=== PATIENT | female | born 1935 | race Caucasian/White ===

== ENCOUNTER → 2017-05-23 | Outpatient (CLI) | payer OTHER ==
[~2017-05-23] MED LIST: ACET-24 PO; ATEN-173 PO; CALC-354 PO; CYAN100020 PO; IBUP-103 PO; IRON TAB PO; LISI-788 PO; OMEG10007 PO; OMEP40CA PO; RALO60TA12 PO; SENNTAB23 PO; TAFL1DRO14 OPB; TRAM-10 PO
[2017-05-23 09:59] LABS: BASO % 0.3 %; BASO ABS # 0.03 K/uL (0-0.2); COMPLETE YES; EOS % 4.4 %; HEMATOCRIT 34.4 % (37-47); IG% 0.1 %; LYMPH % 30.7 %; LYMPH ABS # 2.64 K/uL (1.2-3.4); MEAN CELL VOLUME 77.8 fL (80-100); MEAN CORPUSCULAR HEMOGLOBIN 24.7 pg (25-34); MEAN CORPUSCULAR HGB CONC 31.7 g/dl (32-36); MONO % 5.6 %; NEUT % 58.9 %; PLATELET COUNT 364 K/uL (130-400); RED BLOOD COUNT 4.42 M/uL (4.2-5.4)
[2017-05-23 10:28] LABS: ALT/SGPT 16 U/L (12-78); BLOOD UREA NITROGEN 26 mg/dl (7-18); BUN/CREATININE RATIO 25.5 (10-20); CARBON DIOXIDE 27 mmol/L (21-32); CHLORIDE 106 mmol/L (98-107); GLUCOSE 99 mg/dl (70-99); POTASSIUM 4.1 mmol/L (3.5-5.1); SODIUM 140 mmol/L (136-145)
[2017-05-23 10:38] LABS: ALB/GLOB RATIO 0.9 (0.9-2); ALKALINE PHOSPHATASE 67 U/L (45-117); AST/SGOT 11 U/L (15-37)
[2017-05-23 11:32] LABS: ESTIMATED AVERAGE GLUCOSE 114 mg/dl; HA1C FLAG Normal (Normal)
--- NOTE | 2017-05-29 14:33 | CODING QUERY MEDICAL NECESSITY ---
CQSUPPORTING DIAGNOSIS NEEDED A supporting diagnosis is required for the test/procedure performed on this patient in order for us to be reimbursed by the patient's insurance. Please provide a supporting diagnosis for the following test/procedure listed below next to the test name along with your signature. *If there is no additional diagnosis for this patient that would support the following test/procedure please document that below next to the test/procedure. Test(s)/Procedure(s) that require a supporting diagnosis: DOS 05/23/17 VITAMIN D TEST VITAMIN B12 GLYCATED HEMOGLOBIN TEST Provider Signature: Date: Thank you Archana Castillo Health Information Management Once completed, please kindly fax back to [phone] For questions please call [phone]
== END | disposition home or self-care (01) ==
LOC: C.LAB 09:26
PROVIDERS: ATTEND Internal Medicine
DX: R53.83 Other fatigue (principal); E55.9 Vitamin D deficiency, unspecified; E53.8 Deficiency of other specified B group vitamins

== ENCOUNTER → 2017-06-13 | Outpatient (CLI) | payer OTHER | END | disposition home or self-care (01) | LOC: C.MAMM 10:44 | PROVIDERS: ATTEND Internal Medicine | DX: M81.0 Age-related osteoporosis without current pathological fracture (principal); M85.88 Other specified disorders of bone density and structure, other site; M85.851 Other specified disorders of bone density and structure, right thigh; M85.852 Other specified disorders of bone density and structure, left thigh ==

== ENCOUNTER 2017-08-20 09:54 | Observation (INO) | payer OTHER ==
[2017-08-02 12:59] VITALS: BMI 34.0
[2017-08-02 13:19] LABS: BASO % 0.5 %; BASO ABS # 0.05 K/uL (0-0.2); COMPLETE YES; EOS % 2.1 %; HEMATOCRIT 33.7 % (37-47); IG% 0.4 %; LYMPH % 20.8 %; LYMPH ABS # 2.13 K/uL (1.2-3.4); MEAN CELL VOLUME 76.4 fL (80-100); MEAN CORPUSCULAR HEMOGLOBIN 24.5 pg (25-34); MEAN PLATELET VOLUME 10.6 fL (7.4-10.4); NEUT % 70.2 %; PLATELET COUNT 380 K/uL (130-400); RED BLOOD COUNT 4.41 M/uL (4.2-5.4); WHITE BLOOD COUNT 10.24 K/uL (4.8-10.8)
--- NOTE | 2017-08-02 13:26 | PAT Medication Instructions ---
Service Date Aug 02, 2017. Current Home Medication List Atenolol (Tenormin), 25 MG PO QAM Calcium Carbonate-Cholecalcife (Caltrate 600+D), 1 TAB PO QAM Cyanocobalamin (Vitamin B12), 2,000 MCG PO QAM Fish Oil (Bergland-3), 1,200 MG PO QAM Ibuprofen Tab (Advil), 400 MG PO PRN Lisinopril/Hctz (Zestoretic 20MG/25MG), 1 TAB PO QAM Raloxifene Hcl (Evista), 60 MG PO QAM Sennosides-Docusate Sodium (Stool Softener), 1 TAB PO Q2D [Iron Tab], 1 TAB PO QAM Medication Instructions For Your Scheduled Surgery - Hold the following medications 2 weeks prior to surgery: Fish Oil (Bergland-3), 1,200 MG PO QAM - Hold the following medications the morning of surgery: [Iron Tab], 1 TAB PO QAM Raloxifene Hcl (Evista), 60 MG PO QAM Ibuprofen Tab (Advil), 400 MG PO PRN (otherwise okay to continue per surgeon) Lisinopril/Hctz (Zestoretic 20MG/25MG), 1 TAB PO QAM Calcium Carbonate-Cholecalcife (Caltrate 600+D), 1 TAB PO QAM Cyanocobalamin (Vitamin B12), 2,000 MCG PO QAM Sennosides-Docusate Sodium (Stool Softener), 1 TAB PO Q2D - Take the following medications the morning of surgery with a sip of water OTHERWISE NOTHING TO EAT OR DRINK AFTER MIDNIGHT: Atenolol (Tenormin), 25 MG PO QAM If you have any questions please call us at [phone] or [phone] or [phone]
[2017-08-02 13:40] LABS: PARTIAL THROMBOPLASTIN RATIO 0.8; PROTHROMBIN TIME (PATIENT) 10.5 SECONDS (9.0-12.0)
[2017-08-02 13:41] LABS: BUN/CREATININE RATIO 23.3 (10-20); CALCIUM 9.6 mg/dl (8.5-10.1); POTASSIUM 3.8 mmol/L (3.5-5.1)
--- NOTE | 2017-08-02 14:17 | DIAGNOSTIC IMAGING REPORT ---
CHEST 2 VIEWS ROUTINE HISTORY: Preop. COMPARISON: Chest 02/26/2006. FINDINGS: Small linear scarlike density within the left lung apex. Large hiatus hernia which is increased in size. No focal lung consolidations to suggest pneumonia. No evidence for pulmonary edema. No pleural effusions. No pneumothorax. IMPRESSION: No acute process within the chest. Large hiatus hernia which has increased in size. Electronically signed by: León Haynes M.D. 08/02/2017 2:15 PM Dictated Date/Time: 08/02/2017 2:09 PM
--- NOTE | 2017-08-16 08:15 | HISTORY & PHYSICAL EXAMINATION ---
DATE OF ADMISSION: 08/20/2017 CHIEF COMPLAINT: Right arm pain, discomfort and dysfunction. HISTORY OF PRESENT ILLNESS: The patient is an 82-year-old right hand dominant female who injured her right arm back in the middle of January. She tripped over a stone and fell and injured her right arm. She had a spiral humerus fracture. She was splinted and referred to our institution. We treated her with a Gracia brace and sling and swath for about 2 months. There has been no signs of healing. Over time she has tried to use her arm and it has become just more dysfunctional and painful. There have been no signs of healing at all. Her fracture site is hypermobile. She has very limited use of her right arm and would like to have it fixed. She was going to try and just live with this but does not feel like she can do that. She has a chronic ache. She lives by herself and this has made it difficult. PAST MEDICAL HISTORY: 1. Hypertension. 2. Mild obesity with BMI of 35. 3. Unspecified cancer. PAST SURGICAL HISTORY: Include: 1. Ankle surgery. 2. Hysterectomy. 3. Cholecystectomy. ALLERGIES: None. CURRENT MEDICINES: 1. Vitamin B12. 2. Vitamin D3. 3. Lisinopril/hydrochlorothiazide. 4. Evista. 5. Atenolol. SOCIAL HISTORY: An 82-year-old white female. She is . She does not smoke. FAMILY HISTORY: Noncontributory. REVIEW OF SYSTEMS: Negative for diabetes, neurologic problems, vascular problems, bleeding disorders. Denies any chest pain or shortness of breath. No history of DVT or PE. PHYSICAL EXAMINATION: GENERAL: Reveals a pleasant elderly female. She looks to be in pretty good health. HEAD, EYES, EARS, NOSE, AND THROAT EXAMINATION: Benign. NECK: Supple. No lymphadenopathy. LUNGS: Clear to auscultation. HEART: Regular rate and rhythm. ABDOMEN: Soft, nontender, nondistended. EXTREMITY EXAMINATION: Grossly neurovascularly intact except as follows: Examination of the right arm reveals obvious deformity to her arm. She has hypermobility at the fracture site. With any flexion or abduction of the arm the proximal segment moves markedly and the other side just kind of lags and drapes behind. She can flex or extend her fingers appropriately. She is neurologically intact. X-RAYS: X-rays of the right humerus were reviewed. 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 There are no signs of healing at all. ASSESSMENT: An 82-year-old white female now 6 months out from a right humerus fracture with an obvious atrophic nonunion. PLAN: We talked about treatment plans. She has tried to manage this without surgery, but does not feel like she can. She lives by herself having difficulty using her arm. She would like to have her arm fixed. We are going to take her to the operating room and do an ORIF of right humeral diaphyseal nonunion. We will likely need a bone graft from the iliac crest. The risks and benefits of this procedure were explained to the patient including but not limited to DVT, PE, , infection, neurological injury, vascular injury, bleeding problems, nonunion, malunion and specifically radial nerve palsy. The patient understands and desires to proceed. Informed consent was obtained.
[~2017-08-20] VITALS: Ht 167.6 cm; Wt 96.1 kg
[~2017-08-20 09:54] MED LIST changes: -ACET-24 PO; +ATROPINE SULFATE 0.1 MG/ML 5ML SYR IV PRN; +CEFAZOLIN 2000 MG/60 ML D5W 60 ML IV SCH; +EpHEDrine SULFATE INJ 50 MG/ML AMP IV PRN; +FENTANYL CITRATE INJ 50 MCG/1 ML 2 ML VIAL IV PRN; +LACTATED RINGER'S 1000ML 1,000 ML IV SCH; +LACTATED RINGER'S 1000ML IV SCH; -OMEP40CA PO; +ONDANSETRON INJ 2 MG/ML 2 ML VIAL IV PRN; -TAFL1DRO14 OPB; -TRAM-10 PO
[2017-08-20 10:15] VITALS: BP 135/71; PULSE 63; TEMP 36.7; O2SAT 63; Ht 167.6 cm; Wt 96.1 kg
[2017-08-20] MEDS ORDERED: FENTANYL CITRATE INJ 50 MCG/1 ML 2 ML VIAL ONE ×3 (10:52→14:58)
[2017-08-20] MEDS ORDERED: MIDAZOLAM HCL 1 MG/ML 2ML VIAL ONE (10:52)
--- NOTE | 2017-08-20 11:02 | History & Physical Bridge Note ---
H&P Re-Evaluation Bridge Note: I have examined the patient, reviewed the History & Physical and in the interval since the performance of the History & Physical I have noted the following changes of clinical significance: No changes noted
[2017-08-20] MEDS ORDERED: ROPIVACAINE 0.5% 5 MG/ML 30 ML VIAL ONE (11:07)
[2017-08-20] MEDS ORDERED: SUCCINYLCHOLINE CHLORIDE 20 MG/ML 10 ML VIAL IV ONE (11:31)
[2017-08-20] MEDS ORDERED: LIDOCAINE HCL 2% 2 ML VIAL (20MG/ML) ONE (11:31)
[2017-08-20] MEDS ORDERED: PROPOFOL IV EMULSION 10 MG/ML 20 ML VIAL IV ONE (11:31)
[2017-08-20] MEDS ORDERED: BACITRACIN 50000 UNIT VIAL ONE ×2 (12:56→15:31)
[2017-08-20] MEDS ORDERED: BUPIVACAINE/EPINEPHRINE 0.5% MPF 1:200,000 30 ML VIAL ONE (12:56)
[2017-08-20] MEDS ORDERED: ROCURONIUM BROMIDE 10 MG/ML 5 ML VIAL IV ONE (13:56)
[2017-08-20] MEDS ORDERED: ONDANSETRON INJ 2 MG/ML 2 ML VIAL ONE ×2 (13:57→17:14)
[2017-08-20] MEDS ORDERED: EpHEDrine SULFATE 50MG/5ML SYR ONE (13:57)
[2017-08-20] MEDS ORDERED: EpHEDrine SULFATE INJ 50 MG/ML AMP ONE (14:08)
[2017-08-20] MEDS ORDERED: SODIUM CHLORIDE 0.9% INJ 10 ML VIAL ONE (14:08)
[2017-08-20] MEDS ORDERED: GELATIN SPONGE SZ 100 ONE (14:56)
[2017-08-20] MEDS ORDERED: THROMBIN FOR SOLN 20000 UNIT KIT ONE (14:57)
[2017-08-20] MEDS ORDERED: CEFAZOLIN SOD 1 GM VIAL ONE (16:37)
--- NOTE | 2017-08-20 16:41 | DIAGNOSTIC IMAGING REPORT ---
Radiology R HUMERUS MIN 2 VIEW ROUTINE CLINICAL HISTORY: 82 years-old Female presenting with RT ORIF NON UNION. TECHNIQUE: 4 fluoroscopic spot image(s) obtained as part of an intraoperative procedure. COMPARISON: 08/02/2017. FINDINGS/IMPRESSION: There has been interval cortical compression plate and screw fixation across the obliquely oriented mid humeral shaft fracture. Anatomic alignment has been restored. Please see surgical report for further details. Fluoroscopy dosage (mGy): Not available. Fluoroscopy time: 30 seconds. Number of fluoroscopic spot images: 4. Electronically signed by: Horace Astudillo M.D. 08/20/2017 4:40 PM Dictated Date/Time: 08/20/2017 4:39 PM
[2017-08-20] MEDS ORDERED: BISACODYL 10 MG SUPP PR PRN (17:00)
[2017-08-20] MEDS ORDERED: HYDROmorphone INJ 0.5 MG/0.5 ML SYR IV PRN (17:00)
[2017-08-20] MEDS ORDERED: ALUMINUM/MAGNESIUM/SIMETH (MAALOX MAX) 30 ML UDC PO PRN (17:00)
[2017-08-20] MEDS ORDERED: ZOLPIDEM TARTRATE 5 MG TAB PO PRN (17:00)
[2017-08-20] MEDS ORDERED: NO NSAIDS SCH (17:00)
[2017-08-20] MEDS ORDERED: MAGNESIUM HYDROXIDE SUSP 30 ML UDC PO PRN (17:00)
[2017-08-20] MEDS ORDERED: METOCLOPRAMIDE HCL INJ 5 MG/ML 2 ML VIAL IV PRN (17:00)
[2017-08-20] MEDS ORDERED: ONDANSETRON INJ 2 MG/ML 2 ML VIAL IV PRN (17:00)
--- NOTE | 2017-08-20 17:00 | [facility] Post Operative Brief Note ---
Immediate Operative Summary Operative Date Aug 20, 2017. Pre-Operative Diagnosis Right Humerus Fracture with an Atrophic Nonunion Post-Operative Diagnosis Right Humerus Fracture with an Atrophic Nonunion Procedure(s) Performed Open Reduction Internal Fixation Right Humerus Nonunion Fracture with Right Iliac Crest Bone Graft Surgeon Dr. Tavarez Emotional Support Teacher Surgeon(s) RICHARD Abarca Estimated Blood Loss 200ml Findings Right Humerus Nonunion with Pseudoarthrosis Fluids (cc crystalloids) 1200 cc Specimens None per surgeon Drains None Anesthesia General with IS Block Complication(s) None Disposition Recovery Room / PACU
--- NOTE | 2017-08-20 17:39 | Anesthesiology Progress Note ---
Anesthesia Post Op Note Date & Time Aug 20, 2017 at 17:39 Vital Signs Pain Intensity: 0 Vital Signs Past 12 Hours Date Time Temp Pulse Resp B/P (MAP) Pulse Ox O2 Delivery O2 Flow Rate FiO2 08/20/17 17:30 62 16 140/78 95 Nasal Cannula 2 08/20/17 17:20 65 22 132/95 97 Oxymask 10 08/20/17 17:10 68 17 150/89 100 Oxymask 10 08/20/17 17:07 36.2 66 16 153/97 97 Oxymask 10 08/20/17 10:15 36.7 63 20 135/71 (92) 63 Room Air Notes Mental Status: alert / awake / arousable, participated in evaluation Pt Amnestic to Procedure: Yes Nausea / Vomiting: adequately controlled Pain: adequately controlled Airway Patency, RR, SpO2: stable & adequate BP & HR: stable & adequate Hydration State: stable & adequate Anesthetic Complications: no major complications apparent
[2017-08-20 18:30] VITALS: BP 146/83; PULSE 69; PULSE 70; TEMP 34.7; O2SAT 97
[2017-08-20] MEDS ORDERED: IV FLUIDS COMPLETED PRN (18:30)
[2017-08-20] MEDS: OXYCODONE HCL IR 5 MG TAB (IMMEDIATE RELEASE) PO PRN (18:47)
[2017-08-20] MEDS: D5W AND 1/2NSS + 20MEQ KCL 1,000 ML IV SCH (18:54)
[2017-08-20 19:00] VITALS: BP 119/75; PULSE 76; TEMP 36.4; O2SAT 98
[2017-08-20] MEDS ORDERED: SENNA 8.6 MG TAB PO SCH (21:00)
[2017-08-20] MEDS ORDERED: DOCUSATE SODIUM/SENNA 50/8.6MG TAB PO SCH (21:00)
[2017-08-20] MEDS: DOCUSATE SODIUM 100 MG CAP PO SCH (21:06)
--- NOTE | 2017-08-20 21:08 | PROGRESS NOTE ---
DATE: 08/20/2017 SUBJECTIVE: An 82-year-old female postop from ORIF and iliac crest bone grafting of a right humeral diaphyseal nonunion/pseudoarthrosis. She is doing pretty well. Her major complaint is hip pain. She did not have any pain in arm yet. Just starting to get some sensation back in a little bit. Denies any chest pain or shortness of breath. OBJECTIVE: VITAL SIGNS: Temperature 36.4. Vital signs stable. PHYSICAL EXAMINATION: GENERAL: Reveals a pleasant elderly female. She is sitting up in bed and looks reasonably comfortable. LUNGS: Clear to auscultation. HEART: Regular rate and rhythm. ABDOMEN: Soft, nontender, nondistended. EXTREMITIES: Examination of the extremities are grossly neurovascularly intact, except as follows: Examination of the right arm reveals the dressing to be clean, dry and intact. She does not have any significant motor function yet from the block. She is just starting to be able to wiggle her fingers just slightly. She has got brisk refill. Her arm is well aligned. Examination of the hip area reveals the dressing to be intact. No signs of significant drainage. ASSESSMENT: An 82-year-old white female postop from open reduction internal fixation and an iliac crest bone grafting of a right humeral diaphysis nonunion with pseudoarthrosis. She is doing pretty well. Interscalene block is still in effect. Difficult to assess neurovascular status. Arm pain is controlled. Major complaints is hip pain, which is expected. PLAN: 1. DVT prophylaxis including thigh-high TEDs, SCDs, and aspirin twice a day. 2. PT/OT. We will begin active and active assisted range of motion of the elbow and shoulder. 3. IV antibiotics x24 hours. 4. Disposition: She does live by herself. She is planning to be discharged to home once medically stable and pain is controlled. LUKE
[2017-08-20] MEDS: ACETAMINOPHEN 500 MG TAB PO SCH (22:02)
--- NOTE | 2017-08-20 22:18 | OPERATIVE REPORT ---
DATE OF OPERATION: 08/20/2017 SURGEON: Arcadio Tavarez MD SWEAT BAND SEWER: RICHARD Young PREOPERATIVE DIAGNOSIS: Right humeral nonunion. POSTOPERATIVE DIAGNOSIS: Right humeral nonunion with pseudoarthrosis. PROCEDURE: ORIF right humeral nonunion/pseudoarthrosis with iliac crest bone grafting. COMPLICATIONS: None. ESTIMATED BLOOD LOSS: 200 mL. FLUID REPLACEMENT: 1200 mL crystalloid fluid replacement. ANESTHESIA: General. SPECIMENS: None. OPERATIVE INDICATIONS: The patient is an 82-year-old right hand dominant female who lives by herself, who fell and injured her arm back in the middle of January. She was treated conservatively with a coaptation splint, followed by a Gracia brace. Unfortunately, she went on to an obvious nonunion and pseudoarthrosis. There were no signs of healing at all and she had tremendous mobility at the fracture site. She is having trouble managing this on her own and living by herself due to a dysfunctional limb. She elected to proceed with surgical treatment to fix the nonunion/pseudoarthrosis. OPERATIVE FINDINGS: Operative findings revealed a markedly displaced nonunion with a large pseudoarthrosis and a fluid filled cavity. This was very atrophic without any signs of attempted healing other than just some scar tissue. OPERATIVE IMPLANTS: Operative implants consisted of: 1. A Synthes 12-hole 4.5/5.0 narrow locking plate. 2. 4.5 fully threaded cortical screws x5. 3. A 5.0 fully threaded cortical locking screws x6. OPERATIVE PROCEDURE: The patient taken to the operating room, identified and placed on the operating table in supine position. All contact areas were appropriately padded. Interscalene block had been provided in the holding area. General anesthetic was implemented by the anesthesia team. A bump was placed underneath the right shoulder as well as the right hip. The head was then turned to the left side. I did put the bed in slight reverse Trendelenburg. X-ray was brought in to make sure we could get adequate x-rays. The right upper extremity and the right iliac crest area were then prepped and draped in the usual sterile fashion. An anterior lateral approach to the proximal humerus was then performed through a curvilinear incision, beginning just distal and lateral to the coracoid and developed down the deltopectoral groove and then the anterior down the arm to just above the elbow flexion crease, about 5 cm. Sharp dissection was carried through the subcutaneous tissues. She did have a fairly large soft tissue envelope. I then developed the deltopectoral interval. The cephalic vein was identified and retracted medially. The deltoid was elevated laterally. I did have to take the deltoid off this proximal segment in order to reduce this and debride it along with the lateral surface to place the plate. The proximal segment was worked on first. I debrided all of the scar tissue using a curette as well as a rongeur. I then drilled the intramedullary canal with a 3.2 drill bit to make sure we had access. Once this was cleaned up, attention was then drawn distally. The distal fragment was identified and exposed. I made an incision through the brachialis after retracting the biceps medially. This was extended distally. I did identify the radial nerve and protected it very carefully throughout the course of the case. We did not really dissect it out as it was fairly easily mobilized. I did have to dissect it out a little bit further distally. Once again, this was protected throughout the case. I exposed the distal fragment, curetted this and debrided of all scar tissue. I also used a 3.2 mm drill bit to open the canal. I spent quite a bit of time mobilizing this fracture, so I could reduce it. I then fit it together. Due to the chronic nature, it did not fit together perfectly but quite nicely, considering everything. Once I did this, I elected to proceed with iliac crest bone grafting as I thought her fracture really needs something to stimulate healing. The wound was packed. It was irrigated. This was covered and attention was then drawn to harvesting the iliac crest graft. About a 5 cm incision was made over the iliac crest, beginning at about 2 cm posterior to the anterior superior iliac spine and extending posteriorly. Sharp dissection was carried through the subcutaneous tissue down to the iliac crest. A saw was then used to open the iliac crest in a trapdoor fashion and hinge open the surface. I then curetted out the cancellous bone. Once this was complete, I irrigated extensively and injected locally with 20 mL of 0.5% Marcaine with epinephrine. I did place some thrombin soaked Gelfoam in the iliac crest and then closed the cortical bones over top of this. The deep tissue over the iliac crest was closed with 0 Vicryl suture in [id number] fashion. The subcutaneous tissues were then closed with 0 Vicryl suture, deep in a buried interrupted fashion and the subcutaneous tissues with 2-0 Dexon suture. I then covered this wound until ready for stapling. I did not want to expose the skin until I had completed the case. Attention was then drawn back to the humerus. I irrigated this wound extensively. I then took some of the cancellous bone and packed it in the proximal segment as well as the distal segment in the intramedullary canal. I then held this reduced. I then placed 2 K wires across this to hold it reduced. The reduction clamps were removed. A 12-hole plate was then contoured to the lateral aspect of the humerus. It was fixed proximally with a single 4.5 cortical screw and distally with a single 4.5 cortical screw. This provided nice approximation after I had bent this to contour to the humerus. I then placed 2 lag screws through the plate and across the fracture site using 4.5 cortical screws. I then placed 3 additional 5.0 locking screws proximally. I then placed three 5.0 locking screws distally along with an additional 4.5 cortical screw which was almost essentially an interfrag screw as it really missed the proximal segment and fixed the distal segment. I did place this cortical screw before the locking screws. I shingled the bone in order to stimulate additional healing. X-ray was brought in. The fracture was nearly anatomically aligned. I then irrigated the wound extensively. I did inject locally with 20 mL of 0.5% Marcaine with epinephrine. I then took some of the cancellous graft and packed it around the fracture site, both anteriorly and posteriorly. I then closed the capsule area over the humerus with 0 Vicryl suture in a [id number] fashion. Once again, great care was taken throughout this procedure to protect the radial nerve at all times. Subcutaneous tissues were then closed with 2-0 Dexon suture in a buried interrupted fashion. The skin was closed with skin velasquez. I then exposed the iliac crest and closed this with skin velasquez. Both wounds were then dressed with Xeroform, followed by 4 x 4's. The iliac crest wound was dressed with 2 Tegaderm dressings. The right arm was wrapped with sterile cast padding, followed by an Eliazar bandage and a sling. The patient was then brought out of general anesthesia and transferred to the recovery room in stable condition. The patient tolerated the procedure well with no complications. All needle and sponge counts were correct at the end of the operation. I attest to the content of the Intraoperative Record and any orders documented therein. Any exceptions are noted below. MTDD
[2017-08-20 23:34] VITALS: BP 110/64; PULSE 80; TEMP 36.6; O2SAT 91
[2017-08-20] MEDS: CEFAZOLIN IV 2,000 MG in DEXTROSE 5% 50ML 50 ML IV SCH (23:43)
[2017-08-21 03:09] VITALS: BP 129/73; PULSE 85; TEMP 36.7; O2SAT 94
[2017-08-21] MEDS: OXYCODONE HCL IR 5 MG TAB (IMMEDIATE RELEASE) PO PRN ×2 (03:28→10:29)
[2017-08-21] MEDS: D5W AND 1/2NSS + 20MEQ KCL 1,000 ML IV SCH (03:35)
[2017-08-21] MEDS: ACETAMINOPHEN 500 MG TAB PO SCH (05:49)
[2017-08-21 06:50] VITALS: BP 111/67; PULSE 80; TEMP 36.8; O2SAT 90
[2017-08-21 06:58] LABS: HEMATOCRIT 29.1 % (37-47); MEAN CELL VOLUME 77.2 fL (80-100); MEAN CORPUSCULAR HEMOGLOBIN 24.4 pg (25-34); MEAN CORPUSCULAR HGB CONC 31.6 g/dl (32-36); MEAN PLATELET VOLUME 10.3 fL (7.4-10.4); PLATELET COUNT 304 K/uL (130-400); RED BLOOD COUNT 3.77 M/uL (4.2-5.4); WHITE BLOOD COUNT 11.63 K/uL (4.8-10.8)
[2017-08-21 07:27] LABS: BUN/CREATININE RATIO 14.8 (10-20); CALCIUM 8.2 mg/dl (8.5-10.1); CREATININE 0.99 mg/dl (0.60-1.20); POTASSIUM 4.1 mmol/L (3.5-5.1)
[2017-08-21] MEDS ORDERED: TRAM-10 PO (08:08)
[2017-08-21] MEDS ORDERED: ACET-24 PO (08:08)
--- NOTE | 2017-08-21 08:11 | Discharge Instructions ---
Discharge Instructions Date of Service Aug 21, 2017. Admission Reason for Admission: Right Humerus Fracture Non-Union Discharge Discharge Diagnosis / Problem: Right Humerus ORIF Discharge Goals Goal(s): Decrease discomfort, Improve function, Increase independence, Improve disease control, Therapeutic intervention Activity Recommendations Activity Limitations: per Instructions/Follow-up section Lifting Limitations: no more than 5 pounds . Instructions / Follow-Up Instructions / Follow-Up Keep dressings clean, dry, and in place until Saturday Change dressings Saturday. Cover wounds if any drainage. May shower once dressings removed. Sling at all times except for when doing exercised. Follow-up in ORthopedic clinic in 2 weeks. Current Hospital Diet Patient's current hospital diet: Regular Diet Discharge Diet Recommended Diet: Regular Diet Procedures Procedures Performed: Open Reduction Internal Fixation Right Humerus Nonunion Fracture with Right Iliac Crest Bone Graft Pending Studies Studies pending at discharge: no Laboratory Results Hemoglobin A1c Test 05/23/17 09:38 Range/Units Estimated Average Glucose 114 mg/dl Hemoglobin A1c 5.6 4.5-5.6 % Medical Emergencies . Who to Call and When: Medical Emergencies: If at any time you feel your situation is an emergency, please call 911 immediately. . Non-Emergent Contact Non-Emergency issues call your: Surgeon . "Provider Documentation" section prepared by Arcadio Tavarez. . VTE Core Measure Inpt VTE Proph given/why not?: Donn Virgen, SCD's
[2017-08-21] MEDS: CEFAZOLIN IV 2,000 MG in DEXTROSE 5% 50ML 50 ML IV SCH (08:20)
[2017-08-21] MEDS: DOCUSATE SODIUM 100 MG CAP PO SCH (08:22)
--- NOTE | 2017-08-21 08:22 | PROGRESS NOTE ---
DATE: 08/21/2017 SUBJECTIVE: 82-year-old white female postop day 1 from an ORIF and iliac crest bone grafting of a right humeral diaphyseal nonunion. She is doing well. No major complaints hip pain. The arm is not hurting too bad. She is anxious to go home. No chest pain or shortness of breath. Not feeling dizzy or lightheaded. OBJECTIVE: VITAL SIGNS: Temperature 36.7. Vital signs stable. PHYSICAL EXAMINATION: GENERAL: Reveals a healthy pleasant elderly female sitting up in bed, looks pretty comfortable. Looks better than she did last evening for certain. LUNGS: Clear to auscultation. HEART: Regular rate and rhythm. ABDOMEN: Soft, nontender, nondistended. EXTREMITIES: Grossly neurovascularly intact except as follows. Examination of the right arm reveals the dressing to be clean, dry and intact. She can flex and extend her fingers and her wrist appropriately. She is completely neurologically intact. Examination of the right hip reveals the dressing to be in place. Just a trace bit of bloody drainage. LABORATORY DATA: Hemoglobin is 9.2. Hematocrit 29.1. Electrolytes are stable. Sodium is just slightly low at 133. ASSESSMENT: 82-year-old white female postop day 1 from an ORIF and iliac crest bone grafting of a right humeral nonunion, doing pretty well. She is neurologically intact. Hip is pretty sore which is to be expected. PLAN: We are going to do a little bit of therapy this morning just for wrist and elbow motion. We are going to leave her dressings in place for about 2 days and then she can change them. If her pain is controlled we will discharge her today. Her daughter is going to be staying with her.
[2017-08-21] MEDS ORDERED: FERROUS GLUCONATE 324 MG TAB PO SCH (08:30)
[2017-08-21] MEDS ORDERED: MULTIVITAMIN TAB PO SCH (09:00)
[2017-08-21] MEDS ORDERED: PANTOprazole SOD 40 MG TAB PO SCH (09:00)
[2017-08-21] MEDS ORDERED: LISINOPRIL/HCTZ 20/25MG TAB PO SCH (09:00)
[2017-08-21] MEDS ORDERED: CYANOCOBALAMIN 500 MCG TAB (VIT B-12) PO SCH (09:00)
[2017-08-21] MEDS ORDERED: CALCIUM 600MG + VIT D 400 IU TAB PO SCH (09:00)
[2017-08-21 09:39] VITALS: BP 111/67; PULSE 80; TEMP 36.8; O2SAT 90
--- NOTE | 2017-08-21 10:39 | Anesthesiology Progress Note ---
Anesthesia Post Op Note Date & Time Aug 21, 2017 at 10:35 Vital Signs Pain Intensity: 4.0 Vital Signs Past 12 Hours Date Time Temp Pulse Resp B/P (MAP) Pulse Ox O2 Delivery O2 Flow Rate FiO2 08/21/17 09:39 36.8 80 16 90 Room Air 08/21/17 09:00 Room Air 08/21/17 06:50 36.8 80 16 111/67 (82) 90 Room Air 08/21/17 03:09 36.7 85 18 129/73 (91) 94 Room Air 08/20/17 23:45 Room Air 08/20/17 23:34 36.6 80 17 110/64 (79) 91 Room Air Notes Mental Status: alert / awake / arousable Pt Amnestic to Procedure: Yes Nausea / Vomiting: adequately controlled Pain: adequately controlled Airway Patency, RR, SpO2: stable & adequate BP & HR: stable & adequate Hydration State: stable & adequate Neuraxial Anesthesia: was administered, sensory block resolved General anesthesia with PNB. No complaints of discomfort.
--- NOTE | 2017-08-23 19:03 | DISCHARGE SUMMARY ---
ADMITTING PHYSICIAN AND SURGEON: Dr. Tavarez. ADMITTING DIAGNOSIS: Right humerus nonunion. PROCEDURE PERFORMED: ORIF of a right humeral nonunion with iliac crest bone grafting. SECONDARY DIAGNOSES: Hypertension, mild obesity, cancer. CONSULTS: None obtained. HISTORY AND PHYSICAL EXAMINATION: Well documented in the patient's chart. HOSPITAL COURSE: The patient was admitted on 08/20/2017 and underwent ORIF of the humeral nonunion with iliac crest bone grafting. She tolerated the procedure well. There were no complications. She was transferred to the PACU postoperatively and later to the orthopedic floor for further care. She was given Ancef for antibiotic prophylaxis, JEN stockings, SCDs for DVT prophylaxis. Hemoglobin, hematocrit and vital signs were monitored during her hospital stay. She developed some postoperative anemia with a hemoglobin down to 9.2, did not require any blood transfusions. There were no complications. By postoperative day 1, she was tolerating a regular diet, pain was controlled with oral pain medicine. She was participating in physical therapy. On postop day 1, she was discharged home. She was given printed discharge instructions including new prescriptions for extra strength Tylenol and tramadol. Continue her home medications. She was instructed to lift no more than 5 pounds with this arm, keep her dressing clean, dry and intact until 3 days postoperatively. She can change the dressings. She should cover the wound if there is any drainage. She may shower once her dressing is changed. She was instructed to wear her sling at all times except for exercises and she is to follow up in [address] Tavarez or sooner if there are any problems or concerns.
== END 2017-08-21 10:50 | disposition home or self-care (01) ==
LOC: C.ACU 09:54 → C.3E 10:17 → ENRESERV 17:32
PROVIDERS: ADMIT Orthopaedic Surgery Sports Medicine; ATTEND Orthopaedic Surgery Sports Medicine
DX: S42.301K Unspecified fracture of shaft of humerus, right arm, subsequent encounter for fracture with nonunion (principal); W01.198S Fall on same level from slipping, tripping and stumbling with subsequent striking against other object, sequela; I10 Essential (primary) hypertension; E66.9 Obesity, unspecified; M84.421K Pathological fracture, right humerus, subsequent encounter for fracture with nonunion

== ENCOUNTER → 2017-12-12 | Outpatient (CLI) | payer OTHER ==
[~2017-12-12] MED LIST changes: +ACET-24 PO; -ATROPINE SULFATE 0.1 MG/ML 5ML SYR IV PRN; -CEFAZOLIN 2000 MG/60 ML D5W 60 ML IV SCH; -EpHEDrine SULFATE INJ 50 MG/ML AMP IV PRN; -FENTANYL CITRATE INJ 50 MCG/1 ML 2 ML VIAL IV PRN; -LACTATED RINGER'S 1000ML 1,000 ML IV SCH; -LACTATED RINGER'S 1000ML IV SCH; -ONDANSETRON INJ 2 MG/ML 2 ML VIAL IV PRN; -RALO60TA12 PO; +RALO60TA30 PO
[2017-12-12 10:57] LABS: BASO % 0.7 %; BASO ABS # 0.08 K/uL (0-0.2); EOS % 4.2 %; EOS ABS # 0.46 K/uL (0-0.5); HEMATOCRIT 31.8 % (37-47); HEMOGLOBIN 9.7 g/dL (12.0-16.0); IG# 0.05 K/uL (0.00-0.02); LYMPH % 24.7 %; LYMPH ABS # 2.68 K/uL (1.2-3.4); MEAN CELL VOLUME 72.1 fL (80-100); MEAN CORPUSCULAR HGB CONC 30.5 g/dl (32-36); MEAN PLATELET VOLUME 9.7 fL (7.4-10.4); MONO % 7.4 %; NEUT % 62.5 %; NEUT ABS # 6.77 K/uL (1.4-6.5); PLATELET COUNT 399 K/uL (130-400); RED CELL DISTRIBUTION WIDTH CV 17.6 % (11.5-14.5); RED CELL DISTRIBUTION WIDTH SD 45.9 fL (36.4-46.3); WHITE BLOOD COUNT 10.84 K/uL (4.8-10.8)
== END | disposition home or self-care (01) ==
LOC: C.LABBC 09:18
PROVIDERS: ATTEND Internal Medicine
DX: I10 Essential (primary) hypertension (principal); D50.9 Iron deficiency anemia, unspecified